=== PATIENT | male | born 1980 | race Caucasian/White ===

== ENCOUNTER 2018-09-21 10:49 | Emergency (ER) ==
[2018-09-21 10:53] VITALS: BP 158/107; TEMP 98.7; BMI 37.9
--- NOTE | 2018-09-21 12:14 | CT ---
EXAM: CT abdomen pelvis without contrast HISTORY: Pain left lower quadrant, flank COMPARISON: None TECHNIQUE: CT abdomen pelvis performed without intravenous contrast. Coronal and sagittal reformatt ed images obtained. FINDINGS: Granulomatous calcification left lung base. No free air. No acute abnormalities of the [place] silver. Degenerative change in the spine. Heart normal in size. Evaluation organ parenchyma limited w ithout contrast. Liver appears normal. Gallbladder appears normal. Pancreas appears normal. Splee n appears normal. Adrenals appear normal. Kidneys appear normal without hydronephrosis or nephrolit hiasis. No calculi visualized in normal course of the ureters. Bladder unremarkable. Prostate norm al in size. Small to moderate fat-containing right inguinal hernia. Small fat-containing periumbilic al hernia. Aorta normal caliber. Small hiatal hernia. No dilated loops small bowel. Appendix appe ars normal. Colon unremarkable. No inflammatory stranding identified in the abdomen pelvis. IMPRESSION: 1. No hydronephrosis or nephrolithiasis. No acute abnormality identified in the abdomen or pelvis. 2. Small hiatal hernia. 3. Small to moderate fat-containing right inguinal hernia.
--- NOTE | 2018-09-21 13:39 | ED.PDOC ---
General ED Provider: Dr. ANTHONY RICHARDS Chief Complaint: Abdominal Pain Stated Complaint: abdominal pain Time Seen by Physician: 11:00 Mode of Arrival: Walk-In Information Source: Patient Exam Limitations: No limitations Nursing and Triage Documentation Reviewed and Agree: Yes Does patient meet sepsis criteria?: No System Inflammatory Response Syndrome: Not Applicable Sepsis Protocol: For patient's 13 years and over: Temp is 96.8 and below OR 101 and greater Pulse >90 BPM Resp >20/minute Acutely Altered Mental Status Are patient's symptoms suggestive of a new infection, such as: -Pneumonia -Skin, Soft Tissue -Endocarditis -UTI -Bone, Joint Infection -Implantable Device -Acute Abdominal Infection -Wound Infection -Meningitis -Blood Stream Catheter Infection -Unknown GI Complaint Exam - Abdominal Pain Complaint/Exam Onset: Gradual Duration: 1 week Symptoms Are: Still present Timing: Intermittent Initial Severity: Moderate Current Severity: Mild Location of Pain: LLQ Radiates To: Reports: LLQ Character: Reports: Dull, Aching Aggravating: Reports: None Alleviating: Reports: None Associated Signs and Symptoms: Denies: Diaphoresis, Fever, Cough, Chest pain, Dizziness, Back pain, Constipation, Blood in stool, Dysuria, Urinary frequency, Decreased urine output, Decreased appetite, Discharge, Nausea, Vomiting, Diarrhea, Decreased activity Related History: Reports: Similar episode AAA Risk Factors: Reports: None Cardiac Risk Factors: Reports: None Testicular Torsion Risk Factors: Reports: None Surgical Obstruction Risk Factors: Reports: None Related Surgical History: Reports: None Abdominal Findings: Present: None Differential Diagnoses: Appendicitis, Bowel Obstruction, Constipation, Pancreatitis, GB, UTI Review of Systems - Review Of Systems Constitutional: Reports: No symptoms Eyes: Reports: No symptoms Ears, Nose, Mouth, Throat: Reports: No symptoms Respiratory: Reports: No symptoms Cardiac: Reports: No symptoms GI: Reports: Abdominal pain : Reports: No symptoms Musculoskeletal: Reports: No symptoms Skin: Reports: No symptoms Neurological: Reports: No symptoms Endocrine: Reports: No symptoms Hematologic/Lymphatic: Reports: No symptoms All Other Systems: Reviewed and Negative Past Medical History - Past Medical History Previously Healthy: Yes Endocrine: Reports: None Cardiovascular: Reports: Hypertension Respiratory: Reports: Bronchitis Hematological: Reports: None Gastrointestinal: Reports: None Genitourinary: Reports: None Neuro/Psych: Reports: None Musculoskeletal: Reports: None Cancer: Reports: None Other Pertinent Past Medical History: obesity - Surgical History General Surgical History: Reports: None - Family History Family History: Reports: None - Social History Smoking Status: Never smoker Hx Substance Use: No Alcohol Screening: Occasionally Physical Exam - Physical Exam Appearance: Well-appearing, No pain distress, Well-nourished Eyes: DARIANA, EOMI, Conjunctiva clear ENT: Ears normal, Nose normal, Oropharynx normal Respiratory: Airway patent, Breath sounds clear, Breath sounds equal, Respirations nonlabored Cardiovascular: RRR, Pulses normal, No rub, No murmur GI/: Soft, Nontender, No masses, Bowel sounds normal, No Organomegaly Musculoskeletal: Normal strength, ROM intact, No edema, No calf tenderness Skin: Warm, Dry, Normal color Neurological: Sensation intact, Motor intact, Reflexes intact, Cranial nerves intact, Alert, Oriented Psychiatric: Affect appropriate, Mood appropriate Interpretation - Radiology Interpretation Radiology Interpretation By: Radiologist Radiology Results: No acute changes Re-Evaluation - Re-Evaluation Time of Re-Evaluation: 12:00 Status: Improved Vital Signs Stable: Yes Pain Level: 0 Appearance: NAD Lungs: Clear Skin: Warm and Dry Neuro: Alert and Oriented X3 CV: RRR - Re-Evaluation Time of Re-Evaluation: 13:37 Status: Improved Pain Level: 0 Appearance: NAD Skin: Warm and Dry Neuro: Alert and Oriented X3 CV: RRR Critical Care Note - Critical Care Note Total Time (mins): 0 Course - Course Hematology/Chemistry: 09/21/18 11:30 09/21/18 11:30 Orders, Labs, Meds: Lab Review 09/21/18 09/21/18 09/21/18 11:30 11:30 12:05 WBC 4.46 RBC 5.22 Hgb 15.3 Hct 43.6 MCV 83.5 MCH 29.3 MCHC 35.1 RDW Coeff of Ana Cristina 11.7 Plt Count 192 Immature Gran % (Auto) 0.0 Neut % (Auto) 62.1 Lymph % (Auto) 22.9 Buchanan % (Auto) 13.5 H Eos % (Auto) 1.3 Baso % (Auto) 0.2 Immature Gran # (Auto) 0.0 Neut # (Auto) 2.8 Lymph # (Auto) 1.0 Buchanan # (Auto) 0.6 Eos # (Auto) 0.1 Baso # (Auto) 0.0 Sodium 136.0 L Potassium 4.37 Chloride 101.6 Carbon Dioxide 28.0 Anion Gap 10.77 BUN 14.7 Creatinine 0.98 Estimated GFR (MDRD) 86.00 BUN/Creatinine Ratio 15.00 Glucose 97.9 Calcium 9.24 Total Bilirubin 1.56 H AST 26.2 ALT 36.3 Alkaline Phosphatase 54.0 Total Protein 7.64 Albumin 4.55 Globulin 3.09 Albumin/Globulin Ratio 1.47 Amylase 57.5 Urine Color Irion Urine Clarity Clear Urine pH 6.0 Ur Specific [place] 1.025 Urine Protein 2+ Urine Glucose (UA) Negative Urine Ketones Trace Urine Blood Negative Urine Nitrite Negative Urine Bilirubin 1+ Urine Urobilinogen 2.0 Ur Leukocyte Esterase Negative Ur Squamous Epith Cells Not present Urine Mucus 1+ Orders Category Date Time Status AMYLASE Stat LAB 09/21/18 11:30 Completed CBC W/ AUTO DIFF Stat LAB 09/21/18 11:30 Completed COMPREHENSIVE METABOLIC PANEL Stat LAB 09/21/18 11:30 Completed URINALYSIS C & S IF INDICATED Stat LAB 09/21/18 12:[address] ABD/PEL WO RENAL STONE PROT Stat RADS 09/21/18 11:26 Completed Vital Signs: Temp Pulse Resp BP Pulse Ox 09/21/18 10:50 98.7 F 100 H 18 158/107 H 96 Departure - Departure Time of Disposition: 13:37 Disposition: HOME SELF-CARE Discharge Problem: Abdominal pain Proteinuria Qualifiers: Proteinuria type: unspecified Qualified Code(s): R80.9 - Proteinuria, unspecified Instructions: Abdominal Pain (ED) Condition: Good Pt referred to PMD for follow-up: Yes IPMP verified?: No Additional Instructions: Please call your Family Physician as soon as possible to schedule a follow-up appointment YOU DO HAVE SOME PROTEINS IN YOUR URINE THERE SHOULD BE NO PROTEINS IN YOUR URINE. THIS ISSUE MAY BE WARNING SIGN FOR IMPENDING OR ONGOING KIDNEY DAMAGE. SEE YOUR MD SOON POSSIBLE. READ THE ABDOMINAL PAIN INFORMATION SHEET. RETURN NEEDED Allergies/Adverse Reactions: Allergies No Known Allergies Allergy (Verified 09/21/18 10:53) Home Medications: Ambulatory Orders Lisinopril [Zestril] 20 mg PO DAILY 09/21/18 Disposition Discussed With: Patient
== END 2018-09-21 13:53 | disposition home or self-care (01) ==
LOC: ED 10:49
DX: R10.9 Unspecified abdominal pain (principal); R80.9 Proteinuria, unspecified; I10 Essential (primary) hypertension
CPT/HCPCS: 36415; 74176; 80053; 81001; 82150; 85025; 99283